=== PATIENT | female | born 1965 | race Caucasian/White ===

== ENCOUNTER 2017-05-03 13:38 | Emergency (ER) | payer OTHER, BC ==
[~2017-05-03 13:38] MED LIST: ASPIRIN EC325 MG PO; CLINDAMYCIN HC300 MG PO; CYMBALTA30 MG PO; CYMBALTA60 MG PO; ENDOCET 5-3251 EACH PO; FIORICET,ESG1 TABLET PO; INDERAL; INDERAL20 MG PO; KLONOPIN0.5 M1 PO; LISINOPRIL5 MG PO; NORCO 5/3251 TABLET PO; ONDANSETRON ODT4 MG PO; OXYCODONE-APAP1 EACH PO; SENNA PLUS TAB1 EACH PO; TOPAMAX100 MG PO; ZOCOR10 MG PO
[2017-05-03 13:51] LABS: BASOPHIL COUNT 0.1 K/uL (0-0.1); EOSINOPHIL (%) 3.6 % (0-5); EOSINOPHIL COUNT 0.4 K/uL (0-0.3); HEMATOCRIT 40.8 % (36.0-46.0); IMMATURE GRANULOCYTE (%) 0.3 % (0.0-0.7); INSTRUMENT ABS NEUTROPHIL CT 5.5 K/uL; LYMPHOCYTE COUNT 4.6 K/uL (1.0-2.8); MCH 33.9 PG (29.0-34.0); MCV 96.7 FL (83-99); MEAN PLAT.VOLUME 9.4 uM^3 (9.5-12.4); MONOCYTE COUNT 0.6 K/uL (0-0.8); NEUTROPHIL (%) 49.5 % (45-76); NEUTROPHIL COUNT 5.5 K/uL (1.8-6.4); PLATELET COUNT 326 K/uL (156-360); RBC DIS.WIDTH-CV 11.9 % (11.8-14.6); RBC DIS.WIDTH-SD 42.4 % (39-53); RED BLOOD COUNT 4.22 M/uL (3.80-5.20); WHITE BLOOD COUNT 11.2 K/uL (4.1-10.2)
[2017-05-03 14:06] LABS: AMYLASE 42 IU/L (1-118); CHLORIDE 111 mEq/L (99-109); POTASSIUM 4.4 mEq/L (3.7-5.4); SODIUM 138 mEq/L (136-147)
[2017-05-03 14:08] LABS: GLUCOSE 110 mg/dL (70-99)
[2017-05-03 14:09] LABS: ANION GAP 9 MEQ/L (2-14)
[2017-05-03 14:11] LABS: SERUM ETHYL ALCOHOL < 10 mg/dL
[2017-05-03 14:12] LABS: GFR ESTIMATE (CALCULATED) > 59 mL/min/
[2017-05-03 14:13] LABS: UREA NITROGEN (BUN) 16 mg/dL (9-23)
[2017-05-03 14:15] LABS: LIPASE 43 U/L (1.0-51.0)
[2017-05-03 14:20] LABS: QUANTITATIVE HCG 6.6 MIU/ML
[2017-05-03] MEDS ORDERED: KEFLEX500 MG PO (17:29)
== END 2017-05-03 17:50 | disposition home or self-care (01) ==
LOC: TRA 13:38 → ENRESERV 17:24 → CANRESERV 17:24 → TRA 17:50
PROVIDERS: Emergency Medicine
PROC: 0HQGXZZ Repair Left Hand Skin, External Approach (ICD-10-PCS; principal; 2017-05-03)
DX: S62.522B Displaced fracture of distal phalanx of left thumb, initial encounter for open fracture (principal); Y99.0 Civilian activity done for income or pay; W23.0XXA Caught, crushed, jammed, or pinched between moving objects, initial encounter; F32.9 Major depressive disorder, single episode, unspecified; F41.9 Anxiety disorder, unspecified; Z96.651 Presence of right artificial knee joint
CPT/HCPCS: 73130; 80048; 81003; 82150; 83690; 84702; 85025; 86900; 86901; 99281; 99285; G0480; J2405; J3010

== ENCOUNTER 2017-05-04 08:06 | Emergency (ER) | payer OTHER, BC ==
[~2017-05-04] VITALS: Ht 154.9 cm; Wt 60.1 kg
[~2017-05-04 08:06] MED LIST changes: +KEFLEX500 MG PO
[2017-05-04 09:39] VITALS: BP 117/65
== END 2017-05-04 09:40 | disposition home or self-care (01) ==
LOC: EME 08:06
DX: S61.012A Laceration without foreign body of left thumb without damage to nail, initial encounter (principal); W31.9XXA Contact with unspecified machinery, initial encounter; Y99.0 Civilian activity done for income or pay; T81.89XA Other complications of procedures, not elsewhere classified, initial encounter; F17.200 Nicotine dependence, unspecified, uncomplicated
CPT/HCPCS: 99281; 99284